=== PATIENT | male | born 1955 | race Caucasian/White ===

== ENCOUNTER → 2018-10-04 | Outpatient (REF) | payer BC | LOC: M LAB REF 12:13 | PROVIDERS: ATTEND Nurse Practitioner Family | DX: R59.1 Generalized enlarged lymph nodes (principal) ==

== ENCOUNTER 2018-11-10 09:22 | Emergency (ER) | payer BC ==
[~2018-11-10] VITALS: Ht 188 cm; Wt 90.9 kg
[2018-11-10] MEDS ORDERED: PANT40TA3 (09:42)
[2018-11-10] MEDS ORDERED: FLUTISP (09:42)
[2018-11-10] MEDS ORDERED: ATEN25TA (09:42)
[2018-11-10] MEDS ORDERED: SIMV20TA2 (09:42)
[2018-11-10] MEDS ORDERED: RABIES VACCINE HUMAN 2.5 INTERNATIONAL UNITS/ML VIAL (90675) IM ONE (10:00)
[2018-11-10] MEDS ORDERED: RABIES IMMUNE GLOBULIN 1500 INTERNATIONAL UNIT/5ML VIAL (90375) IM ONE ×2 (10:00→10:15)
[2018-11-10] MEDS ORDERED: RABIES IMMUNE GLOBULIN 300 INTERNATIONAL UNITS/1ML VIAL (90375) IM ONE (10:15)
[2018-11-10 11:15] VITALS: BP 155/78
== END 2018-11-10 11:35 | disposition home or self-care (01) ==
LOC: M ED 09:22
DX: Z20.3 Contact with and (suspected) exposure to rabies (principal); Z23 Encounter for immunization; I34.1 Nonrheumatic mitral (valve) prolapse; Z79.899 Other long term (current) drug therapy

== ENCOUNTER 2018-11-13 06:00 | Emergency (ER) | payer BC, OTHER ==
[~2018-11-13] VITALS: Ht 188 cm; Wt 90.9 kg
[~2018-11-13 06:00] MED LIST: ATEN25TA; FLUTISP; PANT40TA3; SIMV20TA2
[2018-11-13] MEDS ORDERED: RABIES VACCINE HUMAN 2.5 INTERNATIONAL UNITS/ML VIAL (90675) IM ONE (06:30)
[2018-11-13 07:11] VITALS: BP 120/76
== END 2018-11-13 07:12 | disposition home or self-care (01) ==
LOC: M ED 06:00
DX: Z23 Encounter for immunization (principal); Z20.3 Contact with and (suspected) exposure to rabies; I34.1 Nonrheumatic mitral (valve) prolapse; J30.89 Other allergic rhinitis

== ENCOUNTER 2018-11-17 06:09 | Emergency (ER) | payer BC, OTHER ==
[~2018-11-17] VITALS: Ht 188 cm; Wt 90.9 kg
[2018-11-17 06:09] VITALS: BP 135/73
[2018-11-17] MEDS ORDERED: RABIES VACCINE HUMAN 2.5 INTERNATIONAL UNITS/ML VIAL (90675) IM ONE (06:30)
== END 2018-11-17 06:44 | disposition home or self-care (01) ==
LOC: M ED 06:09
DX: Z20.3 Contact with and (suspected) exposure to rabies (principal); Z82.49 Family history of ischemic heart disease and other diseases of the circulatory system; Z79.899 Other long term (current) drug therapy

== ENCOUNTER 2018-11-24 06:21 | Emergency (ER) | payer BC, OTHER ==
[~2018-11-24] VITALS: Ht 188 cm; Wt 90.9 kg
[2018-11-24] MEDS ORDERED: RABIES VACCINE HUMAN 2.5 INTERNATIONAL UNITS/ML VIAL (90675) IM ONE (06:45)
[2018-11-24 07:37] VITALS: BP 115/74
== END 2018-11-24 07:39 | disposition home or self-care (01) ==
LOC: M ED 06:21
DX: Z23 Encounter for immunization (principal); Z20.3 Contact with and (suspected) exposure to rabies

== ENCOUNTER → 2018-12-06 | Outpatient (REF) | payer BC, OTHER | LOC: M LAB REF 12:21 | PROVIDERS: ATTEND Internal Medicine | DX: K14.0 Glossitis (principal) ==

== ENCOUNTER → 2020-12-12 | Outpatient (REF) | payer MEDICARE, OTHER ==
[~2020-12-12] MED LIST changes: +PANT40TA29; -PANT40TA3; -SIMV20TA2; +SIMV20TA22
[2020-12-13 17:06] LABS: Lyme Disease IgG/IgM Antibodie <0.91 ISR (0.00-0.90); Lyme Disease IgM Ab Quantitati <0.80 index (0.00-0.79)
== END ==
LOC: M LAB REF 12:06
PROVIDERS: ATTEND Internal Medicine
DX: R21 Rash and other nonspecific skin eruption (principal); W57.XXXS Bitten or stung by nonvenomous insect and other nonvenomous arthropods, sequela; Y99.9 Unspecified external cause status

== ENCOUNTER → 2021-01-05 | Outpatient (CLI) | payer MEDICARE ==
--- NOTE | 2021-01-05 11:02 | REP ---
INDICATION: RUQ PAIN. COMPARISON: None TECHNIQUE/RADIOTRACER AND DOSE: FOLLOWING THE INTRAVENOUS ADMINISTRATION OF 6.5 MCI TECHNETIUM 99 M-MEBROFENIN, MULTIPLE IMAGES OF THE RIGHT UPPER QUADRANT ARE PERFORMED FOR 60 MINUTES. NEXT 8 OZ OF ENSURE ENLIVE IS INGESTED AND FURTHER IMAGING IS PERFORMED FOR 65 MINUTES. FINDINGS: THE GALLBLADDER IS VISUALIZED AT 10 MINUTES POST INJECTION. THERE IS BILIARY TO BOWEL TRANSIT AT 35MINUTES POST INJECTION. THERE IS NO SCINTIGRAPHIC EVIDENCE OF CHOLECYSTITIS. GALLBLADDER EJECTION FRACTION IS CALCULATED TO BE 33% WHICH IS slightly below normal range of greater than 35%. IMPRESSION: Gallbladder ejection fraction 33%, a normal gallbladder ejection fraction is greater than 35%. <Electronically signed by Jah Parsons > 01/05/21 [id number]
== END ==
LOC: M RAD 08:15
PROVIDERS: ATTEND Physician Assistant Medical
DX: R10.11 Right upper quadrant pain (principal)
CPT/HCPCS: 78227; A9537

== ENCOUNTER → 2021-02-09 | Outpatient (CLI) | payer MEDICARE ==
[~2021-02-09] MED LIST changes: +ASPI81TA26 PO; -ATEN25TA; +ATEN25TA PO; +ATOR1TAB21 PO; +FLOM0.4C39 PO; +OXYC1TAB23 PO; -PANT40TA29; +PANT40TA29 PO; +PERC5TAB12 PO
== END ==
LOC: M PLAIMG 10:49
PROVIDERS: ATTEND Nurse Practitioner Women's Health
DX: N20.0 Calculus of kidney (principal)

== ENCOUNTER → 2021-03-05 | Outpatient (CLI) | payer MEDICARE ==
[~2021-03-05] MED LIST changes: +ATEN25TA; -ATEN25TA PO; -ATOR1TAB21 PO; -FLOM0.4C39 PO; -OXYC1TAB23 PO; +PANT40TA29; -PANT40TA29 PO; -PERC5TAB12 PO
[2021-03-05 10:27] LABS: APPEARANCE, URINE CLEAR (CLEAR); BACTERIA, URINE AUTO NEGATIVE (NEGATIVE); BILIRUBIN, URINE AUTO NEGATIVE (NEGATIVE); BLOOD, URINE BLOOD NEGATIVE (NEGATIVE); COLOR, URINE YELLOW (YELLOW); GLUCOSE, URINE (UA) AUTO NEGATIVE (NEGATIVE); KETONE, URINE AUTO NEGATIVE (NEGATIVE); LEUKOCYTE ESTERASE, URINE AUTO NEGATIVE (NEGATIVE); MUCUS, URINE SMALL (NEGATIVE); NITRITE, URINE AUTO NEGATIVE (NEGATIVE); PROTEIN, URINE AUTO NEGATIVE (NEGATIVE); RBC, URINE AUTO 1 /HPF (0-3); SPECIFIC GRAVITY URINE AUTO 1.019 (1.002-1.035); SQUAMOUS EPITHELIAL CELL UR AU 0 /HPF (0-6); UROBILINOGEN, URINE AUTO 0.2 mg/dL (0.0-2.0); WBC, URINE AUTO 1 /HPF (0-3)
[2021-03-05 10:45] LABS: HEMATOCRIT 46.5 % (42.0-52.0); HEMOGLOBIN 15.3 g/dl (13.5-17.5); MEAN CORPUSCULAR HEMOGLOBIN 30.1 pg (27.0-33.0); MEAN CORPUSCULAR HGB CONC 32.9 g/dl (32.0-36.5); MEAN CORPUSCULAR VOLUME 91.5 fl (80.0-96.0); PLATELET COUNT, AUTOMATED 210 10^3/uL (150-450); RED BLOOD COUNT 5.08 10^6/uL (4.30-6.10); WHITE BLOOD COUNT 5.3 10^3/uL (4.0-10.0)
[2021-03-05 10:48] LABS: INR 0.92; PROTHROMBIN TIME 12.7 SECONDS (12.7-14.5)
[2021-03-05 10:49] LABS: PARTIAL THROMBOPLASTIN TIME 29.1 SECONDS (25.9-37.0)
[2021-03-05 11:06] LABS: BLOOD UREA NITROGEN 24 MG/DL (7-18); CALCIUM LEVEL 8.8 MG/DL (8.8-10.2); CARBON DIOXIDE LEVEL 28 MEQ/L (21-32); CHLORIDE LEVEL 112 MEQ/L (98-107); CREATININE FOR GFR 0.89 MG/DL (0.70-1.30); GLOMERULAR FILTRATION RATE > 60.0 (>49); GLUCOSE, FASTING 108 MG/DL (70-100); POTASSIUM SERUM 4.8 MEQ/L (3.5-5.1); SODIUM LEVEL 144 MEQ/L (136-145)
== END ==
LOC: M PLALAB 08:09
PROVIDERS: ATTEND Nurse Practitioner Women's Health
DX: Z01.818 Encounter for other preprocedural examination (principal); N20.0 Calculus of kidney

== ENCOUNTER → 2021-03-07 | Outpatient (CLI) | payer MEDICARE ==
[~2021-03-07] MED LIST changes: -ATEN25TA; +ATEN25TA PO; +ATOR1TAB21 PO; +FLOM0.4C39 PO; +OXYC1TAB23 PO; -PANT40TA29; +PANT40TA29 PO; +PERC5TAB12 PO
== END ==
LOC: M LABSMTC 10:46
PROVIDERS: ATTEND Anesthesiology
DX: Z20.828 Contact with and (suspected) exposure to other viral communicable diseases (principal); Z11.59 Encounter for screening for other viral diseases

== ENCOUNTER 2021-03-12 06:09 | Day surgery (SDC) | payer MEDICARE ==
[~2021-03-12] VITALS: Ht 188 cm; Wt 90.4 kg
[~2021-03-12 06:09] MED LIST changes: +ATEN25TA; -ATEN25TA PO; -ATOR1TAB21 PO; -FLOM0.4C39 PO; +LIDOCAINE 1% MDV 20ML VIAL SQ PRN; +LR 1,000 ML IV ONE; -OXYC1TAB23 PO; +PANT40TA29; -PANT40TA29 PO; -PERC5TAB12 PO; +ceFAZolin SOD 2 GM in IV 1 EA IV ONE
[2021-03-12] MEDS ORDERED: MIDAZOLAM INJ 2MG/2ML VIAL (J2250 PER 1MG) As Ordered ONE (06:57)
[2021-03-12] MEDS ORDERED: propofoL 500 MG/50 ML VIAL As Ordered ONE (06:58)
[2021-03-12] MEDS ORDERED: fentaNYL 100 MCG/2 ML INJECTION (J3010) As Ordered ONE (07:00)
[2021-03-12] MEDS ORDERED: LIDOCAINE 2% 100MG/5ML SDV (FOR ANES.) As Ordered ONE (07:01)
[2021-03-12] MEDS ORDERED: dexameTHASONE 4 MG/ML 1ML VIAL (J1100 PER 1MG) As Ordered ONE ×2 (07:04→07:05)
--- NOTE | 2021-03-12 07:19 | REP ---
INDICATION: KUB BEFORE SDC. COMPARISON: Comparison is made with CT images from February 09, 2021.. TECHNIQUE: KUB. Single-view. FINDINGS: There is a large on calcified gallstone in the right upper quadrant. There are calcific densities projecting in the lower pole of each kidney as well. The as on CT, these are larger on the right. The right lower pole calcific density measures 8 mm in greatest diameter. The bowel gas pattern is normal. Psoas margins and flank stripes are intact. There is no evidence of ureteral calculus. There is a mild dextroconvex curve in the upper lumbar spine. IMPRESSION: Bilateral intrarenal nephrolithiasis. Cholelithiasis. <Electronically signed by Jogre Simon > 03/12/21 [id number]
[2021-03-12] MEDS ORDERED: ePHEDrine SULFATE 25 MG/5 ML(5MG/ML) SYRINGE As Ordered ONE (07:44)
[2021-03-12] MEDS ORDERED: ONDANSETRON 4MG/2ML VIAL As Ordered ONE (07:44)
[2021-03-12] MEDS ORDERED: FLOM0.4C39 PO (07:47)
[2021-03-12] MEDS ORDERED: OXYC1TAB23 PO (07:47)
--- NOTE | 2021-03-12 08:36 | RO ---
OPERATIVE NOTE DATE OF OPERATION: 03/12/2021 PREOPERATIVE DIAGNOSIS: Right kidney stones. POSTOPERATIVE DIAGNOSIS: Right kidney stones. PROCEDURE: Right extracorporeal shock wave lithotripsy. SURGEON: Micah Luna MD DEPARTMENT MGR: None. ANESTHESIA: MAC. OPERATIVE INDICATIONS: This is a 66-year-old male who was recently found to have two non-obstructing stones in the lower pole of right kidney measuring around 7 and 4 mm. They were adjacent to each other. He was brought to the operating room today for treatment. DESCRIPTION OF PROCEDURE: The patient was brought to the operating room and MAC anesthesia was administered. Prophylactic antibiotics were infused. He was then placed in supine position in preparation for right-sided extracorporeal shock wave lithotripsy. Fluoroscopy was utilized to monitor stone position and fragmentation throughout the procedure. Shock waves were then delivered to the right-sided kidney stones ungated. There were no arrhythmias. The stones did appear to fragment well. After 2500 shocks the procedure was completed. The patient was awakened from anesthesia and transported to the recovery room in stable condition. ESTIMATED BLOOD LOSS: 0 mL. COMPLICATIONS: None. SPECIMEN: None. PLAN: The patient will follow up in urology clinic in approximately 3-4 weeks for postoperative visit with imaging prior to assess for residual stone burden. KIMBERLYN
[2021-03-12 08:50] VITALS: BP 141/77
[2021-03-12] MEDS ORDERED: PERC5TAB12 PO (20:21)
== END 2021-03-12 08:56 | disposition home or self-care (01) ==
LOC: M SDC 06:09
PROVIDERS: ATTEND Urology
DX: N20.0 Calculus of kidney (principal); Z79.82 Long term (current) use of aspirin; Z79.899 Other long term (current) drug therapy
CPT/HCPCS: 50590; 74018; J0690; J1100; J2250; J2405; J3010

== ENCOUNTER 2021-03-12 16:10 | Emergency (ER) | payer MEDICARE ==
[~2021-03-12] VITALS: Ht 188 cm; Wt 92.0 kg
[~2021-03-12 16:10] MED LIST changes: +FLOM0.4C39 PO; -LIDOCAINE 1% MDV 20ML VIAL SQ PRN; -LR 1,000 ML IV ONE; +OXYC1TAB23 PO; -ceFAZolin SOD 2 GM in IV 1 EA IV ONE
[2021-03-12] MEDS ORDERED: MORPHINE 4 MG/ML 1ML VIAL/SYRINGE (J2270) IV ONE (18:10)
[2021-03-12 18:33] LABS: BASO % 0.1 % (0.0-1.0); HEMATOCRIT 49.9 % (42.0-52.0); HEMOGLOBIN 16.8 g/dl (13.5-17.5); LYMPH # 0.3 10^3/uL (1.5-5.0); LYMPH % 2.5 % (24.0-44.0); MEAN CORPUSCULAR HEMOGLOBIN 30.5 pg (27.0-33.0); MEAN CORPUSCULAR HGB CONC 33.7 g/dl (32.0-36.5); MEAN CORPUSCULAR VOLUME 90.6 fl (80.0-96.0); MONO # 0.3 10^3/uL (0.0-0.8); MONO % 2.4 % (2.0-8.0); NEUTROPHILS # 11.2 10^3/uL (1.5-8.5); NEUTROPHILS % 94.3 % (36.0-66.0); PLATELET COUNT, AUTOMATED 226 10^3/uL (150-450); RED BLOOD COUNT 5.51 10^6/uL (4.30-6.10); WHITE BLOOD COUNT 11.9 10^3/uL (4.0-10.0)
[2021-03-12 18:55] LABS: BILIRUBIN,DIRECT 0.2 MG/DL (0.0-0.2); BILIRUBIN,TOTAL 0.7 MG/DL (0.2-1.0); TOTAL PROTEIN 7.2 GM/DL (6.4-8.2)
[2021-03-12] MEDS ORDERED: KETOROLAC 30 MG/ML 1ML VIAL IV ONE (19:25)
--- NOTE | 2021-03-12 20:12 | REPVR ---
PROCEDURE INFORMATION: Exam: CT Abdomen And Pelvis Without Contrast Exam date and time: 03/12/2021 6:14 PM Age: 66 years old Clinical indication: Pain; Other: Right flank; Additional info: Right flank pain S/P lithotripsy TECHNIQUE: Imaging protocol: Computed tomography of the abdomen and pelvis without contrast. Radiation optimization: All CT scans at this facility use at least one of these dose optimization techniques: automated exposure control; mA and/or kV adjustment per patient size (includes targeted exams where dose is matched to clinical indication); or iterative reconstruction. COMPARISON: CT ABD PELVIS W/O CONTRAST 02/09/2021 11:03 AM FINDINGS: Liver: Unremarkable. No mass. Gallbladder and bile ducts: 2.3 cm lamellated calculus in the gallbladder. No gallbladder wall thickening or biliary duct dilation. Pancreas: Normal. No ductal dilation. Spleen: Normal. No splenomegaly. Adrenal glands: Normal. No mass. Kidneys and ureters: Mild right renal and perinephric edema is new since the prior exam. There is right pelvicaliectasis 2 calculi in the proximal right ureter measuring up to 3 mm. Additional 2 mm calculus in the mid right ureter. Calyceal stones previously seen in the right kidney are decreased in size. Calyceal stone in the left kidney is unchanged. No hydronephrosis on the left. There is a crescentic area of hyperattenuation along the lateral cortex of the right kidney measuring 2.0 x 0.6 x 1.7 cm, new since the prior exam. Stomach and bowel: Unremarkable. No obstruction. No inflammatory changes or mucosal thickening. Appendix: No evidence of appendicitis. Intraperitoneal space: No free air. No significant fluid collection. Vasculature: Unremarkable. No abdominal aortic aneurysm. Lymph nodes: Unremarkable. No enlarged lymph nodes. Urinary bladder: 2 mm calculus in the urinary bladder. No bladder wall thickening. Reproductive: Unremarkable as visualized. Bones/joints: Unremarkable. No acute fracture. Soft tissues: Unremarkable. IMPRESSION: 1. Mild right hydronephrosis with at least 3 calculi in the right ureter, measuring up to 3 mm. 2. Small calculus in the urinary bladder. 3. Mild right perinephric edema. Small crescentic area of increased attenuation along the lateral capsule of the right kidney, possibly a small subcapsular hematoma. 4. Cholelithiasis. Electronically signed by: Kurt Fisher On 03/12/2021 20:11:58 PM
[2021-03-12] MEDS ORDERED: PERC5TAB12 PO (20:21)
[2021-03-12 20:56] VITALS: BP 143/79
== END 2021-03-12 20:58 | disposition home or self-care (01) ==
LOC: M ED 16:10
DX: G89.18 Other acute postprocedural pain (principal); N13.2 Hydronephrosis with renal and ureteral calculous obstruction; Z98.890 Other specified postprocedural states; K80.20 Calculus of gallbladder without cholecystitis without obstruction; I10 Essential (primary) hypertension; K21.9 Gastro-esophageal reflux disease without esophagitis; E78.5 Hyperlipidemia, unspecified; Z79.82 Long term (current) use of aspirin; Z79.899 Other long term (current) drug therapy
CPT/HCPCS: 74176; 80047; 80076; 81001; 83690; 85025; 96374; 96375; 99284; J1885; J2270

== ENCOUNTER → 2021-03-24 | Outpatient (CLI) | payer MEDICARE ==
[~2021-03-24] MED LIST changes: +PERC5TAB12 PO
--- NOTE | 2021-03-24 10:44 | REP ---
INDICATION: CALCULUS OF KIDNEY COMPARISON: 03/12/2021 TECHNIQUE: Supine view of the abdomen and pelvis. FINDINGS: Small bilateral intrarenal calculi (right greater than left) again noted and essentially unchanged. Large gallstone again identified. Bowel gas pattern is nonspecific. Skeletal structures demonstrate stable age-related degenerative changes. IMPRESSION: Bilateral nephrolithiasis. Cholelithiasis. <Electronically signed by Reid Poole > 03/24/21 [id number]
== END ==
LOC: M PLAIMG 09:54
PROVIDERS: ATTEND Urology
DX: N20.0 Calculus of kidney (principal); K80.20 Calculus of gallbladder without cholecystitis without obstruction

== ENCOUNTER → 2021-03-26 | Outpatient (REF) | payer MEDICARE | LOC: M SMT 12:55 | PROVIDERS: ATTEND Nurse Practitioner Women's Health | DX: N20.0 Calculus of kidney (principal) ==

== ENCOUNTER → 2021-04-07 | Outpatient (CLI) | payer MEDICARE ==
--- NOTE | 2021-04-07 12:14 | REP ---
INDICATION: CALCULUS OF KIDNEY. COMPARISON: 03/24/2021. TECHNIQUE: Two AP views abdomen and pelvis. FINDINGS: Bowel gas pattern is normal with no evidence of bowel obstruction. Subcentimeter calcifications overlying the renal shadows appear unchanged. A 3 cm gallstone is again seen in the right upper quadrant. There are mild degenerative changes of the lumbar spine. IMPRESSION: Stable exam. <Electronically signed by Jah Parsons > 04/07/21 [id number]
== END ==
LOC: M PLALAB 10:44
PROVIDERS: ATTEND Nurse Practitioner Women's Health
DX: N20.0 Calculus of kidney (principal); K80.20 Calculus of gallbladder without cholecystitis without obstruction; M51.36 Other intervertebral disc degeneration, lumbar region

== ENCOUNTER → 2021-04-09 | Outpatient (REF) | payer MEDICARE ==
[2021-04-09 13:58] LABS: APPEARANCE, URINE CLEAR (CLEAR); BACTERIA, URINE AUTO NEGATIVE (NEGATIVE); BILIRUBIN, URINE AUTO NEGATIVE (NEGATIVE); BLOOD, URINE BLOOD NEGATIVE (NEGATIVE); CALCIUM OXALATE CRYSTALS SMALL; COLOR, URINE YELLOW (YELLOW); GLUCOSE, URINE (UA) AUTO NEGATIVE (NEGATIVE); KETONE, URINE AUTO NEGATIVE (NEGATIVE); LEUKOCYTE ESTERASE, URINE AUTO NEGATIVE (NEGATIVE); MUCUS, URINE SMALL (NEGATIVE); NITRITE, URINE AUTO NEGATIVE (NEGATIVE); PROTEIN, URINE AUTO NEGATIVE (NEGATIVE); RBC, URINE AUTO 1 /HPF (0-3); SPECIFIC GRAVITY URINE AUTO 1.023 (1.002-1.035); SQUAMOUS EPITHELIAL CELL UR AU 0 /HPF (0-6); UROBILINOGEN, URINE AUTO 0.2 mg/dL (0.0-2.0); WBC, URINE AUTO 4 /HPF (0-3)
== END ==
LOC: M SMT 12:52
PROVIDERS: ATTEND Nurse Practitioner Women's Health
DX: N20.0 Calculus of kidney (principal)

== ENCOUNTER 2021-06-22 09:45 | Inpatient (IN) | payer MEDICARE ==
[~2021-06-22] VITALS: Ht 188 cm; Wt 91.1 kg
[~2021-06-22 09:45] MED LIST changes: -ATEN25TA; +ATEN25TA PO; -PANT40TA29; +PANT40TA29 PO
[2021-06-22] MEDS ORDERED: ATOR1TAB21 PO (10:18)
[2021-06-22] MEDS ORDERED: NS 1,000 ML IV ONE (10:40)
[2021-06-22 11:42] LABS: BASO % 0.6 % (0.0-1.0); EOS # 0.1 10^3/uL (0.0-0.5); EOS % 0.7 % (0.0-3.0); HEMATOCRIT 46.5 % (42.0-52.0); HEMOGLOBIN 15.7 g/dl (13.5-17.5); LYMPH # 0.9 10^3/uL (1.5-5.0); LYMPH % 13.3 % (24.0-44.0); MEAN CORPUSCULAR HEMOGLOBIN 30.5 pg (27.0-33.0); MEAN CORPUSCULAR HGB CONC 33.8 g/dl (32.0-36.5); MEAN CORPUSCULAR VOLUME 90.5 fl (80.0-96.0); MONO # 0.6 10^3/uL (0.0-0.8); MONO % 8.8 % (2.0-8.0); NEUTROPHILS # 5.3 10^3/uL (1.5-8.5); NEUTROPHILS % 76.3 % (36.0-66.0); PLATELET COUNT, AUTOMATED 228 10^3/uL (150-450); RED BLOOD COUNT 5.14 10^6/uL (4.30-6.10); WHITE BLOOD COUNT 6.9 10^3/uL (4.0-10.0)
[2021-06-22 11:53] LABS: INR 0.84; PARTIAL THROMBOPLASTIN TIME 25.8 SECONDS (25.9-37.0); PROTHROMBIN TIME 11.9 SECONDS (12.7-14.5)
[2021-06-22 11:56] LABS: D-DIMER QUANT 528.28 ng/ml (<500)
[2021-06-22 12:17] LABS: CK-MB VALUE MASS 5.6 NG/ML (<3.6); CPK CREATINE PHOSPHOKINASE 203 U/L (39-308); MB/CK RELATIVE INDEX 2.76 (< OR =4); TROPONIN I < 0.02 NG/ML (< 0.10)
[2021-06-22 12:21] LABS: BLOOD UREA NITROGEN 19 MG/DL (7-18); CALCIUM LEVEL 9.5 MG/DL (8.8-10.2); CARBON DIOXIDE LEVEL 26 MEQ/L (21-32); CHLORIDE LEVEL 110 MEQ/L (98-107); CREATININE FOR GFR 0.99 MG/DL (0.70-1.30); FREE T4 0.95 NG/DL (0.76-1.46); GLOMERULAR FILTRATION RATE > 60.0 (>49); GLUCOSE, FASTING 107 MG/DL (70-100); MAGNESIUM LEVEL 2.5 MG/DL (1.8-2.4); POTASSIUM SERUM 4.4 MEQ/L (3.5-5.1); SODIUM LEVEL 142 MEQ/L (136-145)
[2021-06-22] MEDS ORDERED: ACETAMINOPHEN TAB 650MG DOSE (2X325MG) PO PRN (14:05)
[2021-06-22 14:30] LABS: RSV AMPLIFICATION NEGATIVE (NEGATIVE)
[2021-06-22] MEDS ORDERED: HOME MED LIST COMPLETE! XX SCH (14:45)
[2021-06-22] MEDS ORDERED: ASPIRIN 81MG ENTERIC TABLET PO SCH (21:00)
[2021-06-22] MEDS ORDERED: PANTOPRAZOLE 40MG TAB (PROTONIX) PO SCH (21:00)
[2021-06-22] MEDS ORDERED: ATORVASTATIN 20 MG TAB PO SCH (21:00)
[2021-06-23 02:12] VITALS: BP 115/80
[2021-06-23 06:00] VITALS: BP 113/79
[2021-06-23 07:01] LABS: HEMATOCRIT 44.5 % (42.0-52.0); MEAN CORPUSCULAR HEMOGLOBIN 30.3 pg (27.0-33.0); MEAN CORPUSCULAR HGB CONC 33.7 g/dl (32.0-36.5); MEAN CORPUSCULAR VOLUME 89.9 fl (80.0-96.0); PLATELET COUNT, AUTOMATED 223 10^3/uL (150-450); RED BLOOD COUNT 4.95 10^6/uL (4.30-6.10); WHITE BLOOD COUNT 6.7 10^3/uL (4.0-10.0)
[2021-06-23 07:29] LABS: BLOOD UREA NITROGEN 14 MG/DL (7-18); CALCIUM LEVEL 8.9 MG/DL (8.8-10.2); CARBON DIOXIDE LEVEL 26 MEQ/L (21-32); CHLORIDE LEVEL 109 MEQ/L (98-107); CREATININE FOR GFR 0.94 MG/DL (0.70-1.30); GLOMERULAR FILTRATION RATE > 60.0 (>49); GLUCOSE, FASTING 98 MG/DL (70-100); POTASSIUM SERUM 4.3 MEQ/L (3.5-5.1); SODIUM LEVEL 140 MEQ/L (136-145)
[2021-06-23] MEDS ORDERED: ENOXAPARIN 40MG/0.4ML SYRINGE (J1650 PER 10MG) SC SCH (09:00)
[2021-06-23] MEDS ORDERED: ATEN25TA PO (09:41)
[2021-06-23] MEDS ORDERED: PREVNAR 13 VACCINE SYRINGE IM ONE (12:00)
== END 2021-06-23 11:23 | disposition home or self-care (01) | DRG 310 ==
LOC: M ED 09:45 → M ED INP 14:05 → M MSPAV 06-23 02:12
PROVIDERS: ADMIT Internal Medicine; ATTEND Internal Medicine
DX: I48.91 Unspecified atrial fibrillation (principal); R55 Syncope and collapse; K21.9 Gastro-esophageal reflux disease without esophagitis; E78.5 Hyperlipidemia, unspecified; Z79.82 Long term (current) use of aspirin; Z79.899 Other long term (current) drug therapy

== ENCOUNTER → 2021-11-17 | Outpatient (CLI) | payer MEDICARE ==
[~2021-11-17] MED LIST changes: +ATOR1TAB21 PO; +E-Z-GAS II EFFERVESCENT PACKET (SODIUM BICARB./CITRIC ACID/SIMETHICONE) As Ordered ONE; +E-Z-HD 98% w/w 340GM SUSP BTL As Ordered ONE; +E-Z-PAQUE 96% w/w SUSP 176GM BTL As Ordered ONE
== END ==
LOC: M RAD 08:00
PROVIDERS: ATTEND Surgery
DX: K31.84 Gastroparesis (principal); R10.13 Epigastric pain

== ENCOUNTER → 2022-03-25 | Outpatient (CLI) | payer MEDICARE ==
[~2022-03-25] MED LIST changes: -E-Z-GAS II EFFERVESCENT PACKET (SODIUM BICARB./CITRIC ACID/SIMETHICONE) As Ordered ONE; -E-Z-HD 98% w/w 340GM SUSP BTL As Ordered ONE; -E-Z-PAQUE 96% w/w SUSP 176GM BTL As Ordered ONE
== END ==
LOC: M WUC 09:34
PROVIDERS: ATTEND Physician Assistant Medical
DX: M51.36 Other intervertebral disc degeneration, lumbar region (principal); M51.37 Other intervertebral disc degeneration, lumbosacral region; M25.551 Pain in right hip

== ENCOUNTER 2022-04-23 12:54 | Emergency (ER) | payer MEDICARE ==
[~2022-04-23] VITALS: Ht 188 cm; Wt 87.4 kg
[2022-04-23] MEDS ORDERED: KETOROLAC 60MG 2ML VIAL IM ONE (16:25)
[2022-04-23 20:32] VITALS: BP 148/77
== END 2022-04-23 20:33 | disposition home or self-care (01) ==
LOC: M ED 12:54
DX: M51.26 Other intervertebral disc displacement, lumbar region (principal); R39.15 Urgency of urination; I10 Essential (primary) hypertension; E78.5 Hyperlipidemia, unspecified; K21.9 Gastro-esophageal reflux disease without esophagitis; Z87.442 Personal history of urinary calculi; Z79.82 Long term (current) use of aspirin; Z79.811 Long term (current) use of aromatase inhibitors; Z79.899 Other long term (current) drug therapy
CPT/HCPCS: 72148; 96372; 99284; J1885

== ENCOUNTER → 2022-04-28 | Outpatient (REF) | payer MEDICARE ==
[2022-04-28 17:07] LABS: APPEARANCE, URINE MANUAL CLEAR (CLEAR); COLOR, URINE MANUAL YELLOW (YELLOW)
[2022-04-28 17:08] LABS: PROTEIN, URINE MANUAL NEGATIVE (NEGATIVE); SPECIFIC GRAVITY,URINE MANUAL 1.025 (1.002-1.035)
[2022-04-28 17:09] LABS: BILIRUBIN, URINE MANUAL NEGATIVE (NEGATIVE); BLOOD URINE MANUAL NEGATIVE (NEGATIVE); GLUCOSE, URINE (UA) MANUAL NEGATIVE (NEGATIVE); KETONE, URINE MANUAL NEGATIVE (NEGATIVE); LEUKOCYTE ESTERASE, URINE MAN NEGATIVE (NEGATIVE); NITRITE, URINE MANUAL NEGATIVE (NEGATIVE); UROBILINOGEN, URINE MANUAL NORMAL (NORMAL)
== END ==
LOC: M SMT 16:45
PROVIDERS: ATTEND Nurse Practitioner Women's Health
DX: R39.15 Urgency of urination (principal)

== ENCOUNTER → 2022-06-20 | Outpatient (CLI) | payer MEDICARE ==
[~2022-06-20] MED LIST changes: +GABA-282 PO
== END ==
LOC: M LABSMTC 09:41
PROVIDERS: ATTEND Anesthesiology
DX: Z01.812 Encounter for preprocedural laboratory examination (principal); Z11.52 Encounter for screening for COVID-19

== ENCOUNTER 2022-06-23 08:27 | Day surgery (SDC) | payer MEDICARE ==
[~2022-06-23] VITALS: Ht 188 cm; Wt 85.7 kg
[~2022-06-23 08:27] MED LIST changes: +NS 1,000 ML IV ONE
[2022-06-23] MEDS ORDERED: propofoL 200 MG/20 ML VIAL As Ordered ONE (09:41)
[2022-06-23] MEDS ORDERED: fentaNYL 100 MCG/2 ML INJECTION As Ordered ONE (10:18)
[2022-06-23 10:55] VITALS: BP 115/66
== END 2022-06-23 11:02 | disposition home or self-care (01) ==
LOC: M OPP 08:27
PROVIDERS: ATTEND Internal Medicine Gastroenterology
DX: Z12.11 Encounter for screening for malignant neoplasm of colon (principal); K64.0 First degree hemorrhoids; K57.30 Diverticulosis of large intestine without perforation or abscess without bleeding; E78.5 Hyperlipidemia, unspecified; Z79.82 Long term (current) use of aspirin; Z79.899 Other long term (current) drug therapy
CPT/HCPCS: 43239; 88305; G0121; J3010

== ENCOUNTER → 2022-12-24 | Outpatient (REF) | payer MEDICARE ==
[~2022-12-24] MED LIST changes: +FLUT50SP17; -FLUTISP; -NS 1,000 ML IV ONE
[2022-12-28 17:06] LABS: FOLATE 17.1 NG/ML (>5.4)
== END ==
LOC: M LAB REF 16:17
PROVIDERS: ATTEND Internal Medicine
DX: G60.9 Hereditary and idiopathic neuropathy, unspecified (principal)

== ENCOUNTER 2024-05-23 15:03 | Emergency (ER) | payer MEDICARE ==
[~2024-05-23] VITALS: Ht 188 cm; Wt 91.8 kg
[~2024-05-23 15:03] MED LIST changes: -FLUT50SP17; +FLUTISP; +GABA-1172 PO; -GABA-282 PO
[2024-05-23 15:33] LABS: BASO % 0.6 % (0.0-1.0); EOS # 0.1 10^3/uL (0.0-0.5); EOS % 1.3 % (0.0-3.0); HEMATOCRIT 45.1 % (42.0-52.0); HEMOGLOBIN 15.5 g/dl (13.5-17.5); LYMPH # 1.3 10^3/uL (1.5-5.0); LYMPH % 20.3 % (24.0-44.0); MEAN CORPUSCULAR HEMOGLOBIN 30.9 pg (27.0-33.0); MEAN CORPUSCULAR HGB CONC 34.4 g/dl (32.0-36.5); MONO # 0.6 10^3/uL (0.0-0.8); MONO % 9.4 % (2.0-8.0); NEUTROPHILS # 4.2 10^3/uL (1.5-8.5); NEUTROPHILS % 68.4 % (36.0-66.0); PLATELET COUNT, AUTOMATED 211 10^3/uL (150-450); RED BLOOD COUNT 5.01 10^6/uL (4.30-6.10); WHITE BLOOD COUNT 6.2 10^3/uL (4.0-10.0)
[2024-05-23] MEDS: METOPROLOL TART 50 MG TAB PO ONE (15:51)
[2024-05-23] MEDS: METOPROLOL 5 MG/5 ML VIAL IV SCH ×2 (15:51→16:50)
[2024-05-23 16:01] LABS: CK-MB VALUE MASS 6.4 NG/ML (<3.6)
[2024-05-23 16:04] LABS: CPK CREATINE PHOSPHOKINASE 307 U/L (46-171); MB/CK RELATIVE INDEX 2.08 (< OR =4)
[2024-05-23 16:12] LABS: BLOOD UREA NITROGEN 23 MG/DL (9-23); CALCIUM LEVEL 9.6 MG/DL (8.3-10.6); CARBON DIOXIDE LEVEL 28 MMOL/L (20-31); CHLORIDE LEVEL 112 MMOL/L (98-107); CREATININE FOR GFR 0.94 MG/DL (0.70-1.30); GLOMERULAR FILTRATION RATE > 60.0 (>49); GLUCOSE, FASTING 146 MG/DL (74-106); MAGNESIUM LEVEL 2.2 MG/DL (1.8-2.4); POTASSIUM SERUM 3.7 MMOL/L (3.5-5.1); SODIUM LEVEL 143 MMOL/L (136-145)
[2024-05-23 16:16] LABS: THYROID STIMULATING HORMONE 1.464 uIU/ML (0.55-4.78)
[2024-05-23 17:06] VITALS: BP 123/65
[2024-05-23] MEDS ORDERED: HOME MED LIST COMPLETE! XX SCH (17:20)
[2024-05-23] MEDS ORDERED: METO25TA4 PO (17:25)
[2024-05-23 17:45] VITALS: BP 116/84; TEMP 98.7; O2SAT 96
== END 2024-05-23 17:47 | disposition home or self-care (01) ==
LOC: M ED 15:03
DX: I48.0 Paroxysmal atrial fibrillation (principal); F10.10 Alcohol abuse, uncomplicated; E78.5 Hyperlipidemia, unspecified; K21.9 Gastro-esophageal reflux disease without esophagitis; Z79.82 Long term (current) use of aspirin; Z79.02 Long term (current) use of antithrombotics/antiplatelets; Z79.899 Other long term (current) drug therapy